=== PATIENT | female | born 1945 | race Caucasian/White ===

== ENCOUNTER 2019-10-19 00:08 | Emergency (ER) | payer BC ==
[~2019-10-19] VITALS: Ht 162.6 cm; Wt 86.2 kg
[2019-10-19] MEDS ORDERED: SILVER NITRATE APPLICATOR STICK EACH TP ONE ×3 (00:25→01:15)
[2019-10-19] MEDS ORDERED: PHENYLEPHRINE 1% (EXTRA STR) NASAL SPRAY NS ONE ×2 (00:41→00:45)
--- NOTE | 2019-10-19 00:50 | NUR ---
Dr Meng into insert 5.5 cm rapid rhino on right nares.
--- NOTE | 2019-10-19 01:04 | NUR ---
Patient discharged to home in stable condition. Written and verbal after care instructions given. Patient verbalizes understanding of instructions. Stressed follow up or return to ER for worsening s/s.
[2019-10-19 01:06] VITALS: BP 138/77
== END 2019-10-19 01:08 | disposition home or self-care (01) ==
LOC: ER 00:18
PROC: 095KXZZ Destruction of Nasal Mucosa and Soft Tissue, External Approach (ICD-10-PCS; principal; 2019-10-19)
PROC: 2Y41X5Z Packing of Nasal Region using Packing Material (ICD-10-PCS; principal; 2019-10-19)
DX: R04.0 Epistaxis (principal); E03.9 Hypothyroidism, unspecified
CPT/HCPCS: 30901; A4663

== ENCOUNTER 2019-10-20 10:24 | Emergency (ER) | payer BC ==
[~2019-10-20] VITALS: Ht 162.6 cm; Wt 86.2 kg
--- NOTE | 2019-10-20 10:37 | NUR ---
[email or web address], medical screening exam in progress
--- NOTE | 2019-10-20 11:06 | NUR ---
No bleeding seen after the removal of nasal packing. Patient discharged to home in stable condition. Written and verbal after care instructions given to patient. Patient verbalized understanding & compliance of instructions. Stressed follow up with ENT or return to ER for worsening s/s.
== END 2019-10-20 11:07 | disposition home or self-care (01) ==
LOC: ER 10:24
DX: Z48.00 Encounter for change or removal of nonsurgical wound dressing (principal); E03.9 Hypothyroidism, unspecified; I48.91 Unspecified atrial fibrillation; Z79.01 Long term (current) use of anticoagulants; Z79.02 Long term (current) use of antithrombotics/antiplatelets; E78.00 Pure hypercholesterolemia, unspecified
CPT/HCPCS: A4663